=== PATIENT | male | born 1985 | race Caucasian/White ===

== ENCOUNTER 2020-02-07 13:14 | Emergency (ER) | payer OTHER, SELFPAY ==
[2020-02-07 13:15] VITALS: BP 127/99; PULSE 112; RESP 16; TEMP 37.1; O2SAT 96; BMI 22.2
[2020-02-07 13:35] VITALS: BP 127/99; PULSE 112; RESP 16; TEMP 37.1; O2SAT 96
--- NOTE | 2020-02-07 13:39 | ED.VISSUMM ---
- ER Visit Summary Date of Service: 02/07/20 Chief Complaint: [Cough] History of Present Illness: The patient is a 34 M [presents the emergency department for cough that started 5 days ago. Patient also has had a sore throat and felt fatigued. Has had headache. Patient states that he is been working in some of his coworkers have been on COVID leave. Patient states that he has a girlfriend and she is not been feeling well either. He denies any fevers. Denies any real shortness of breath. He has no medical history. Patient is a smoker.] Physical Examination: [HEENT-PERRLA, EOMI. Cranial nerves II through XII grossly intact. TMs clear. Mucous membranes moist. No adenopathy. Cardiovascular-regular rate and rhythm without murmur or ectopy Lungs-clear to auscultation, chest wall stable without crepitus or subcu emphysema Abdomen-normoactive bowel sounds, soft, nontender, no rebound or rigidity, no peritoneal signs. Extremities-intact ?4, normal range of motion, normal pulses, atraumatic] Test Results: [COVID-19 test ordered and pending] Emergency Department Course and Treatment: [] Treatment Plan: Patient advised to self quarantine for 14 days. Patient will follow-up on his COVID-19 testing. I do not feel he needs any further work-up at this time as clinically he looks well and is not hypoxic or tachypneic. [] Disposition: [Discharged home in stable condition] Impression: [Viral URI-rule out COVID-19] This note was generated with [employer] dictation software. It may contain incorrect words, spelling, and punctuation that were not noted in review of the chart prior to signing ED Disposition - Plan for ED Patient: Referrals: Care Physician,No Primary [Primary Care Provider] -
--- NOTE | 2020-02-07 13:41 | ED.DEP ---
ED Disposition - Plan for ED Patient: Instructions: ED Upper Resp Infec No Abx Tx Referrals: Care Physician,No Primary [Primary Care Provider] - Additional Instructions: [facility]7 days as needed
== END 2020-02-07 14:05 | disposition home or self-care (01) ==
LOC: ED 14:05
PROVIDERS: Emergency Provider Emergency Medicine
DX: Z20.828 Contact with and (suspected) exposure to other viral communicable diseases (principal)
CPT/HCPCS: 87635; 99281; G2023; U0003

== ENCOUNTER 2025-04-20 20:50 | Emergency (ER) | payer OTHER, SELFPAY ==
[2025-04-20 20:51] VITALS: BP 134/89; PULSE 108; RESP 16; TEMP 36.6; O2SAT 100; BMI 20.9
--- NOTE | 2025-04-20 21:01 | CT_ITS ---
PROCEDURE: CT ABDOMEN/PELVIS W IV CONT ONLY 04/20/2025 REASON FOR EXAM: RIGHT SIDED ABDOMINAL PAIN TECHNIQUE: Procedure Code: [id number] Modality: CT Procedure: ABDOMEN/PELVIS W IV CONT ONLY Coronal and Sagittal reconstruction series were provided. CONTRAST: Isovue 370 VOLUME: 78 mL One or more dose reduction techniques were used (e.g., Automated exposure control, adjustment of the mA and/or kV according to patient size, use of iterative reconstruction technique. RADIATION DOSE SUMMARY: DLP: 423.68 mGycm COMPARISON: None. FINDINGS: Lung bases: Clear. Liver: Unremarkable. Gallbladder: Contracted. No significant biliary ductal dilatation. Spleen: Unremarkable. Pancreas: Unremarkable. Adrenals: Unremarkable. Kidneys: Unremarkable. No urolithiasis or hydroureteronephrosis. Bladder: Circumferential bladder wall thickening, hypertrophy versus cystitis. Reproductive Organs: Unremarkable, nonenlarged prostate. Bowel: Stomach is smoothly distended with ingested contents. No evidence of obstruction or active inflammatory process. Normal appendix. Lymph nodes: No enlarged abdominopelvic lymph nodes. Vasculature: Normal caliber abdominal aorta and IVC. Peritoneum / Retroperitoneum: No ascites or free air. Bones: Unremarkable. CT/Abdomen/Pelvis W IV Cont ONLY IMPRESSION: Circumferential bladder wall thickening, correlate clinically for cystitis. No other acute or active inflammatory intra-abdominal pathology. Reading Location: [id number]
--- NOTE | 2025-04-20 21:04 | ED.VIS.GI ---
HPI HPI - GI History of Present Illness Chief Complaint: Abd Pain Informant: patient Abdominal Pain/Flank Pain Onset: Today and Yesterday Context: Gradual Onset Timing: Continuous Quality: Aching Location: RUQ Current Severity: Moderate Worsened by: Nothing Relieved by: Nothing Nausea/Vomiting/Emesis GI Symptom: Negative for Nausea or Vomiting Diarrhea/Melena/Hematochezia GI Symptom: Negative for Diarrhea, Melena or Hematochezia Associated Symptoms Associated Symptoms: Negative for Dysuria, Frequency, Hematuria or Urgency Narrative Narrative: 39-year-old male right upper quadrant abdominal pain since yesterday. Gradual onset. No prior history. No trauma. Denies any nausea, vomiting or diarrhea. No fever or chills. No dysuria or hematuria. No significant past medical history. No prior abdominal surgeries. No back pain. P.o. intake today. Nothing particularly makes the pain better or worse. Prior similar symptoms: No Recent Illness/Hospitalization: No PFSH PFSH Medical History no medical history no medical history Home Medications Medication Instructions Recorded Last Taken Type NK 02/07/20 Unknown History Allergy/AdvReac Type Severity Reaction Status Date / Time No Known Allergies Allergy Verified 04/20/25 20:51 Surgical History no surgical history no surgical history Social History Smoking Status: Current every day smoker tobacco type: cigarettes ROS ROS ED ROS Narrative Right-sided abdominal pain. Constitutional Constitutional ED: Denies chills or fever(s) ENT ENT ED: Denies ear pain Cardiovascular Cardiovascular: Denies chest pain Respiratory/Chest Respiratory/Chest: Denies cough or dyspnea Gastrointestinal Gastrointestinal: Reports abdominal pain; Denies constipation, diarrhea, melena, nausea or vomiting Genitourinary Genitourinary ED: Denies dysuria, hematuria or urinary frequency Musculoskeletal Musculoskeletal: Denies arthralgias or back pain Integumentary Denies abscess or Abrasions Neurologic Neurologic: Denies headache(s) Psychiatric Psychiatric: Denies anxiety Endocrine Endocrinology: Denies polydipsia Hematologic/Lymphatic Hematologic/Lymphatic: Denies easy bleeding, easy bruising or lymphadenopathy Allergic/Immunologic Allergic/Immunologic ED: Denies mouth swelling, tongue swelling or urticaria EXAM Physical Exam Narrative Exam Narrative: 39-year-old male sitting upright in bed. Vital signs are stable afebrile. Companied by his significant other. H EENT exam pupils round react light. Moist mutes members. Neck nontender no JVD. Back nontender. No CVA tenderness. Lungs clear to auscultation bilaterally. Heart regular rhythm rate about 105 no murmur. Chest wall ribs nontender. Abdomen soft nondistended normal bowel sounds without peritoneal signs. Tender right upper quadrant. No Krishna sign. Right lower quadrant McBurney's point nontender. Left side of the abdomen upper and lower quadrants nontender. No distention. No mass. No pulsatile mass. No obstruction. No hernia. No signs of trauma. Moving all 4 extremities. Normal strength. Normal range of motion. Nontender no edema. Neurologically is awake and alert. Answering questions following commands. Const Vital Signs: 04/20/25 20:51 Temperature 97.9 F Temperature Source Oral Pulse Rate 108 H Respiratory Rate 16 Blood Pressure 134/89 H Blood Pressure Mean 104 Pulse Ox 100 Oxygen Delivery Method Room Air Positive well nourished and well developed; Negative for obese, cachectic, contractures or unkempt General Appearance ED: well developed and NAD; Negative for unkempt, cachectic, contractures or pallor Nutritional Appearance: Negative for cachectic or obese HEENT Reports moist mucous membranes normocephalic and atraumatic Eyes PERRL and EOMs intact bilaterally Neck no lymphadenopathy, supple and no JVD Resp normal respiratory effort and clear to auscultation bilaterally Cardio regular rhythm, S1 normal heart sound, S2 normal heart sound and no murmurs; Negative for regular rate Rate: tachycardic GI non-distended and no masses; Negative for non-tender GI Narrative: Tender right upper quadrant only. No Krishna sign. No McBurney's point tenderness. Left side abdomen nontender. No obstruction. No mass. No distention. No hernia. Inspection: Negative for abdominal distention Auscultation: normoactive bowel sounds Palpation: soft and tender; Negative for guarding, rigid, hepatomegaly, splenomegaly, hernia, mass, pulsatile mass or rebound tenderness present Back/Spine no CVA tenderness General Back: Negative for CVA tenderness Cervical Spine: Negative for cervical spine tenderness Thoracic Spine / Upper Back: Negative for thoracic spinal tenderness Lumbar Spine / Lower Back: Negative for lumbar spinal tenderness Extremity full ROM General Extremety ED: Negative for edema or tenderness General Extremity: Negative for edema Neuro CN's II-XII intact bilaterally and moves all extremities Sensorium / Orientation: alert, oriented to person, oriented to place and oriented to time Motor Exam: strength 5/5 throughout Psych mental status grossly normal and thought process normal Appearance: Negative for unkempt Skin no wounds General Skin Exam: Negative for jaundice or pallor Lesions: no lesions Rashes: no rashes Trauma: Negative for abrasion MDM MDM MDM Narrative Medical decision making narrative: 39-year-old male right upper quadrant abdominal pain since last evening. No prior history. Differential would include gallbladder disease, biliary obstruction, biliary colic versus other etiologies. Clinically at least initially does not appear to be appendicitis. There is no signs of obstruction. CAT scan labs to be obtained. He does not want anything for pain and is not having any nausea. Repeat exam around 9:45 PM patient is doing well. Abdomen still only has mild right upper quadrant tenderness. No Krishna sign. There is no peritoneal signs. He is nondistended. Again no tenderness in the right lower quadrant or the left side of his abdomen. We discussed his test results awaiting the CT results. Repeat exam around 10:18 PM again no significant change mild right upper quadrant tenderness. CAT scan was read as negative by the radiologist. I discussed with the patient and his stomach looking for even though he had not eaten for 4 to 5 hours. He can have further evaluation of that. History & Record Review Discussion w/independent historian: Patient Additional record(s) reviewed:: No prior records Lab Data Attestation: I reviewed the patient's lab results. Lab results narrative: CBC unremarkable. White count of 9.9. H&H 16 and 46. Platelets 197. Chemistry shows sodium 139. Gap 15. Normal BUN and creatinine of 12 and 0.8. Glucose 135. Liver enzymes normal. Lipase normal at 50. Urinalysis normal. No white or red cells. No nitrites nor bacteria. Labs: Laboratory Results - last 24 hr 04/20/25 04/20/25 21:00 21:27 WBC 9.9 RBC 4.93 Hgb 16.2 Hct 46.3 MCV 93.9 MCH 32.9 H MCHC 35.0 RDW Std Deviation 42.2 RDW Coeff of Claire 12.0 Plt Count 197 MPV 10.4 Immature Gran % (Auto) 0.300 Neut % (Auto) 58.1 Lymph % (Auto) 32.4 [place] % (Auto) 5.2 Eos % (Auto) 3.4 Baso % (Auto) 0.6 Absolute Neuts (auto) 5.7 Absolute Lymphs (auto) 3.20 Nucleated RBC % 0 Sodium 139 Potassium 3.6 Chloride 101 Carbon Dioxide 23.1 Anion Gap 15 BUN 12 Creatinine 0.86 Estim Creat Clear Calc 109.32 Est GFR (MDRD) Non-Af 114 BUN/Creatinine Ratio 13.4 Glucose 135 H Calcium 9.1 Total Bilirubin < 0.15 AST 20 ALT 15 Alkaline Phosphatase 80 Total Protein 7.2 Albumin 4.5 Globulin 2.7 Albumin/Globulin Ratio 1.7 Lipase 50 Urine Color Straw Urine Clarity Clear Urine pH 6.0 Ur Specific [place] 1.020 Urine Protein 15 H Urine Glucose (UA) Normal Urine Ketones Negative Urine Occult Blood Negative Urine Nitrite Negative Urine Bilirubin Negative Urine Urobilinogen Normal Ur Leukocyte Esterase Negative Urine RBC 0 SEEN Urine WBC 0 SEEN Ur Squamous Epith Cells 0 SEEN Urine Bacteria 0 SEEN Urine Mucus 0 SEEN Radiography Diagnostic Testing: Clinical Impression(s) from Imaging Studies Abdomen/Pelvis CT 04/20/25 21:01 IMPRESSION: Circumferential bladder wall thickening, correlate clinically for cystitis. No other acute or active inflammatory intra-abdominal pathology. Reading Location: [id number] Discharge Plan Triage Chief Complaint: Abd Pain ED Provider: Hitesh Harris Dx/Rx/DC Orders Clinical Impression: Abdominal pain Instructions: Abdominal Pain Prescriptions: No Action NK [facility] [facility] [Primary Care Provider, None] - As Needed Activity Restrictions/Additional Instructions: Follow-up with your primary care provider if not improving. Return if worsening pain, fever or intractable vomiting. Your CAT scan and your labs were unremarkable. The only thing we noticed on your CAT scan is your stomach still had a lot of food and it despite you not eating for 4 to 5 hours. If you continue to have problems you may need an upper scope to evaluate stomach. Print Language: Hungarian Disposition Disposition: Home, Self Care
[2025-04-20 21:09] LABS: Hematocrit 46.3 % (40-54); Hemoglobin 16.2 g/dL (13.0-16.5); Immature Granulocytes Count 0.030 X10^3/uL (0.0-0.0); Mean Corp Hgb Conc 35.0 g/dL (32-36); Mean Corpuscular Volume 93.9 fL (80-94); Mean Platelet Vol. 10.4 fl (6.2-12.0); NRBC Flagged by Analyzer 0 % (0-5); Platelet Count 197 K/mm3 (150-450); RBC Distribution Width CV 12.0 % (11.6-14.6); RBC Distribution Width SD 42.2 fl (35.1-43.9); Red Blood Count 4.93 M/mm3 (4.6-6.2); White Blood Count 9.9 K/mm3 (4.4-11.0)
[2025-04-20 21:34] LABS: Mucous, Urine 0 SEEN /hpf (<or=2+); Red Blood Cells-Urine 0 SEEN /hpf (0-5); Squamous Epithelial Cells - UA 0 SEEN /hpf (0-5)
[2025-04-20 21:35] LABS: Color, Urine Straw (Yellow); Glucose, Dipstick Normal (Normal); Ketone-Dipstick Negative (Negative); Leukocyte Esterase-Dipstick Negative /ul (Negative); Nitrite-Dipstick Negative (Negative); Occult Blood-Urine Negative /ul (Negative); Protein-Dipstick 15 mg/dl (Negative); Specific Gravity, Urine 1.020 (1.002-1.030); Urine Bilirubin Dipstick Negative (Negative)
[2025-04-20 21:38] LABS: Lipase 50 U/L (13-75)
[2025-04-20 21:39] LABS: AST(SGOT) 20 U/L (<=37); Alanine Aminotransfer ALT/SGPT 15 U/L (<=46); Albumin, Serum 4.5 g/dL (3.5-5.0); Alkaline Phosphatase 80 U/L (40-129); Anion Gap 15 (5-15); BUN 12 mg/dL (4-19); BUN/Creat Ratio 13.4 RATIO (10-20); Calcium,Total 9.1 mg/dL (7.6-11.0); Carbon Dioxide 23.1 mmol/L (21.0-32.0); Chloride 101 mmol/L (98-108); Estimated Creatinine Clearance 109.32 ml/min (50-250); Globulin 2.7 g/dL (2.2-4.2); Glucose 135 mg/dL (70-99); Potassium 3.6 mmol/L (3.3-5.1)
== END 2025-04-20 22:28 | disposition home or self-care (01) ==
PROVIDERS: Emergency Provider Emergency Medicine; Visit Provider Emergency Medicine
DX: R10.11 Right upper quadrant pain (principal); F17.210 Nicotine dependence, cigarettes, uncomplicated
CPT/HCPCS: 74177; 80053; 81001; 83690; 85025; 99284; Q9967; A4216